=== PATIENT | male | born 1995 | race Caucasian/White ===

== ENCOUNTER 2023-05-15 18:05 | Emergency (ER) | payer OTHER, SELFPAY ==
[2023-05-15 18:13] VITALS: BP 123/59; PULSE 81; RESP 18; TEMP 37.1; O2SAT 98; BMI 22.4
--- NOTE | 2023-05-15 19:20 | ED.WOUNDLAC ---
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 He states it was a very sharp [place] straight bladed knife. It bled quite profusely initially but they were able to get it wrapped up. His boss insisted that he come to the emergency department for further evaluation. Patient denies any previous injury to this finger, does state that ever since the injury happened he is had numbness at the tip of his finger past the laceration. Denies any other complaints or concerns and presents with L and I paperwork. Related Data Previous Rx's Medication Instructions Recorded mupirocin 2 % topical ointment 1 applic topical TID #22 grams 06/17/22 cephalexin 500 mg capsule 500 mg PO Q8H 5 days #15 caps 05/15/23 Allergies Allergy/AdvReac Type Severity Reaction Status Date / Time No Known Drug Allergies Allergy Verified 05/15/23 18:17 Review of Systems <Shawna Turcios PA-C - Last Filed: 05/15/23 21:47> Review of Systems Narrative: See HPI Patient History <Shawna Turcios PA-C - Last Filed: 05/15/23 21:47> Social History Smoking Status: Current every day smoker Smoking Status: Current every day smoker tobacco type: e-cigarettes alcohol intake frequency: 0-2 drinks per day Substance Use Type: does not use Exam <Shawna Turcios PA-C - Last Filed: 05/15/23 21:47> Narrative Exam Narrative: GENERAL: [27] year old patient appears stated age. Well-developed patient, in mild distress. HEAD: Atraumatic. Normocephalic. EYES: Pupils equal round and reactive. Extraocular motions intact. No scleral icterus. No injection or drainage. ENT: Nose without bleeding, purulent drainage. Airway patent. NECK: Trachea midline. Non tender CARDIOVASCULAR: Regular rate and rhythm without murmurs, gallops, or rubs. RESPIRATORY: Clear to auscultation. Breath sounds equal bilaterally. No wheezes, rales, or rhonchi. EXTREMITIES: Deep laceration full-thickness 2.5 cm swoosh shaped laceration to patient's pad of left index finger. Tourniquet with IV for banding applied prior to removing pressure dressing and bleeding is controlled. Tourniquet is removed and bleeding remains controlled, distal finger tip pad finger is slightly pale, sensation is reduced nearly absent in distal finger distal to the laceration site on the anterior aspect. There is normal active range of motion with flexion and extension of the affected finger. Cap refill is less than 2 seconds with pink well-perfused skin on the dorsum of the affected finger and anteriorly on the affected finger proximal to the laceration, No edema or joint tenderness strong equal bilateral radial pulses. BACK: Nontender without deformity or crepitance. No flank tenderness. NEURO: AOx3. SKIN: No rash or erythema of visible areas Initial Vital Signs Initial Vital Signs: Vital Signs Temperature 98.8 F 05/15/23 18:13 Pulse Rate 81 05/15/23 18:13 Respiratory Rate 18 05/15/23 18:13 Blood Pressure 123/59 L 05/15/23 18:13 Pulse Oximetry 98 05/15/23 18:13 Oxygen Delivery Method Room Air 05/15/23 18:13 <Johny Griffiths DO - Last Filed: 05/15/23 22:09> Initial Vital Signs Initial Vital Signs: Vital Signs Temperature 98.8 F 05/15/23 18:13 Pulse Rate 81 05/15/23 18:13 Respiratory Rate 18 05/15/23 18:13 Blood Pressure 123/59 L 05/15/23 18:13 Pulse Oximetry 98 05/15/23 18:13 Oxygen Delivery Method Room Air 05/15/23 18:13 Procedures <Shawna Turcios PA-C - Last Filed: 05/15/23 21:47> Laceration Repair Laceration 1: Time of procedure: 20:45 Site: hand (index finger tip) Side (If applicable): left Description: other (Curvilinear/swoosh) Local Anesthetic: lidocaine 1% (ordered 2% w/epi but used 1% plain lido only after evaluating wound/bleeding controlled) Amount of anesthesia used (mL): 2 Pre-repair: wound explored, irrigated extensively, deep structures intact and cleansed with chlorhexadine Skin layer closed with: nylon Skin layer suture size: 5-0 Number of sutures: 6 Technique: simple, interrupted Course <Shawna Turcios PA-C - Last Filed: 05/15/23 21:47> Orders Ordered: ED Orders 05/15/23 20:31 XR finger LT min 2V Stat Discontinued Medications Cephalexin HCl (Cephalexin 250 Mg Capsule) 500 mg PO NOW ONE Stop: 05/15/23 21:32 Last Admin: 05/15/23 21:35 Dose: 500 mg Documented By: Lidocaine/Epinephrine (Lidocaine 2% W/Epi Inj) 5 ml INJ INTRA-OP ONE Stop: 05/15/23 20:29 Last Admin: 05/15/23 20:34 Dose: 5 ml Documented By: Vital Signs Vital signs: Vital Signs - 8 hr 05/15/23 18:13 05/15/23 21:36 Temperature 98.8 F Pulse Rate 81 66 Respiratory Rate 18 16 Blood Pressure 123/59 L 132/88 Pulse Oximetry 98 98 Oxygen Delivery Method Room Air Room Air <Johyn Griffiths DO - Last Filed: 05/15/23 22:09> Orders Ordered: ED Orders 05/15/23 20:31 XR finger LT min 2V Stat Discontinued Medications Cephalexin HCl (Cephalexin 250 Mg Capsule) 500 mg PO NOW ONE Stop: 05/15/23 21:32 Last Admin: 05/15/23 21:35 Dose: 500 mg Documented By: Lidocaine/Epinephrine (Lidocaine 2% W/Epi Inj) 5 ml INJ INTRA-OP ONE Stop: 05/15/23 20:29 Last Admin: 05/15/23 20:34 Dose: 5 ml Documented By: Vital Signs Vital signs: Vital Signs - 8 hr 05/15/23 18:13 05/15/23 21:36 Temperature 98.8 F Pulse Rate 81 66 Respiratory Rate 18 16 Blood Pressure 123/59 L 132/88 Pulse Oximetry 98 98 Oxygen Delivery Method Room Air Room Air MDM - Wound/Laceration <Shawna Turcios PA-C - Last Filed: 05/15/23 21:47> Medical Records Attestation: I reviewed the patient's medical records. Imaging Data Extremity x-ray #1: My Impression: Agree with Radiology interpretation Radiologist's Impression: [address] [address] XRay Report Signed Patient: Prasanth Hallman MR#: [id number] : 1995 Acct:[id number] Age/Sex: 27 / M Date of Service: 05/15/23 Loc: ED Accession Number: [id number] ?? Procedure: XR finger LT min 2V Ordering Provider: Shawna Turcios P.A-C PROCEDURE:? XR FINGER LT MIN 2V ? INDICATIONS:? laceration pad of L index finger ? TECHNIQUE:? AP hand, 2 views of the 2nd finger(s) acquired.? ? COMPARISON:? None. ? FINDINGS:? ? Bones:? 2nd digit soft tissue laceration present.? No definitive fracture. ? Soft tissues:? No suspicious soft tissue calcifications.? ? IMPRESSION:? 2nd digit soft tissue laceration. No visualized acute fracture or dislocation. However, if clinical concern and/or pain persist, short interval imaging followup in 7-10 days is recommended, as occult injury cannot be definitively excluded. ? ? Dictated by: Marilee Petty M.D. on 05/15/2023 at 21:29 ? ? Approved by: Marilee Petty M.D. on 05/15/2023 at 21:30?? 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 [id number]. Given deep laceration and patient's nature of work did recommend that he have 3 days off and light duty after that until he has stitches removed and has fully recovered. Wound is repaired as above in procedures today patient does have reduced sensation and suspect nerve damage distal to the laceration site. Tendons appear to be intact and x-ray is without evidence of bony damage. Given the depth of wound and fact that patient was cutting fish at the time of the incident prescription for Keflex today. His Tdap is up-to-date last given in 2021. Return precautions provided, follow-up plan discussed, all questions answered. Discharge Plan Departure Patient Disposition: Home Clinical Impression: Laceration of left index finger Instructions: How to Care for a Laceration After Repair Activity Restrictions/Additional Instructions: *You have been diagnosed with [left index finger laceration] *What to do: *Please continue to take your regular medications as directed. [ ] New medication prescriptions sent to your pharmacy: [ ] [ ] New medication written as a paper prescription [X ] No new medications given *Please follow up with your primary care provider in 2-3 days, call for an appointment. Let them know you were seen in the Emergency Department and that we ask that you be seen in follow up. We will electronically transmit a record of today's note if your PCP is in our system. You did have a deep laceration to index finger and L and I paperwork was completed during your emergency department stay [place] #[id number]. We numbed and sutured your finger with 6 stitches. We also obtained an x-ray today. You had numbness at the tip of your finger past the laceration before numbing and I suspect that you do have some nerve damage, this area may potentially be permanently somewhat numb or it may have some improvement in sensation but it takes time for nerves to grow back. I recommend he be on light duty for at least the next 3 days until you get your stitches out. You should get your stitches out in 7-10 days' time. You will want to keep your finger clean and dry and monitor for signs of infection. Because this was a deep laceration I am going to place you on antibiotics today please take these for the full course *If you do not have a primary care provider please contact the [facility] Resource line at [phone]. They will ask some questions about your medical history and help get you set up with a doctor in the community. *Return to Emergency Department if you should have any new, worsening or concerning symptoms, such as [fever greater than 101 F, shaking chills, worsening pain, persistent vomiting or other bothersome symptoms] Prescriptions: New cephalexin 500 mg capsule 500 mg PO Q8H 5 Days Qty: 15 0RF No Action mupirocin 2 % ointment 1 applic topical TID Qty: 22 2RF Referrals: Miscellaneous,Doctor, [Primary Care Provider] - Stand Alone Forms: Patient Portal/API, Work Release Note <Johny Griffiths, DO - Last Filed: 05/15/23 22:09> Cosign ED Attending Cosignature Attestation: Dr Griffiths Co-Sign Statement: I was available for consultation during this patient's emergency department visit. This chart is signed by myself for administrative purposes only. I did not have direct contact with this patient during this visit. They were seen independently by the APC.
--- NOTE | 2023-05-15 20:31 | DI.RAD.S_ITS ---
PROCEDURE: XR FINGER LT MIN 2V INDICATIONS: laceration pad of L index finger TECHNIQUE: AP hand, 2 views of the 2nd finger(s) acquired. COMPARISON: None. FINDINGS: Bones: 2nd digit soft tissue laceration present. No definitive fracture. Soft tissues: No suspicious soft tissue calcifications. IMPRESSION: 2nd digit soft tissue laceration. No visualized acute fracture or dislocation. However, if clinical concern and/or pain persist, short interval imaging followup in 7-10 days is recommended, as occult injury cannot be definitively excluded. Dictated by: Marilee Petty M.D. on 05/15/2023 at 21:29 Approved by: Marilee Petty M.D. on 05/15/2023 at 21:30
[2023-05-15] MEDS: LIDOCAINE 2% W/EPI INJ 5 ML INJ (20:34)
[2023-05-15] MEDS: cephALEXin 250 MG CAPSULE 500 MG PO (21:35)
[2023-05-15 21:36] VITALS: BP 132/88; PULSE 66; RESP 16; O2SAT 98
== END 2023-05-15 21:41 | disposition home or self-care (01) ==
PROVIDERS: Emergency Provider Student in an Organized Health Care Education/Training Program
DX: S61.211A Laceration without foreign body of left index finger without damage to nail, initial encounter (principal); W26.0XXA Contact with knife, initial encounter; Y93.G3 Activity, cooking and baking; Y92.511 Restaurant or cafe as the place of occurrence of the external cause; Y99.0 Civilian activity done for income or pay
CPT/HCPCS: 12001; 73140; 99283; 99284

== ENCOUNTER → 2023-12-23 16:30 | Outpatient (CLI) | payer OTHER, SELFPAY ==
[2023-12-23 18:33] LABS: Add Manual Diff / Slide Review NO; Basophils Absolute Auto 100 /uL (0-100); Basophils Percent Auto 0.7 % (0-2); Eosinophils Absolute Auto 0 /uL (0-450); Eosinophils Percent Auto 0.5 % (2-4); Hematocrit 41.2 % (41-53); Hemoglobin 14.4 g/dL (13.5-17.5); Lymphocytes Absolute Auto 2100 /uL (1100-4500); Lymphocytes Percent Auto 26.8 % (25-40); Mean Corpuscular HGB Conc 34.9 % (30-36); Mean Corpuscular Hemoglobin 29.9 PG (26-34); Mean Corpuscular Volume 85.5 fL (80-100); Monocytes Absolute Auto 500 /uL (0-900); Monocytes Percent Auto 6.6 % (3-14); Neutrophils Absolute Auto 5200 /uL (1500-7000); Neutrophils Percent Auto 65.4 % (50-75); Platelet Count 291 X10^3/uL (150-400); Red Blood Cell Count 4.82 X10^6/uL (4.5-5.9)
[2023-12-23 18:39] LABS: Alanine Aminotransferase 15 IU/L (<50); Albumin 4.5 g/dL (3.5-5.0); Albumin Globulin Ratio 1.7 (1.0-2.8); Alkaline Phosphatase 49 U/L (38-126); Aspartate Aminotransferase 21 IU/L (17-59); BUN Creatinine Ratio 14.9 (6-22); Bilirubin Total 0.6 mg/dL (0.2-1.3); Blood Urea Nitrogen 13 mg/dL (9-20); Calcium 9.3 mg/dL (8.4-10.2); Carbon Dioxide 22 mmol/L (22-32); Chloride 105 mmol/L (98-107); Estimated Glomerular Filt Rate > 60 mL/min (>60); Globulin 2.6 g/dL (1.7-4.1); Glucose 90 mg/dL (70-100); HEMOLYSIS < 15 (0-50); Potassium 4.1 mmol/L (3.4-5.1); Sodium 138 mmol/L (137-145); Total Protein 7.1 g/dL (6.3-8.2)
[2023-12-23 18:45] LABS: HEMOLYSIS < 15 (0-50); Iron 104 ug/dL (49-181)
[2023-12-23 18:56] LABS: Percent Iron Saturation 42 % (20-50); Total Iron Binding Capacity 248 ug/dL (261-462); Transferrin 205 mg/dL (206-381)
[2023-12-23 19:10] LABS: Ferritin 66 ng/mL (18-464)
[2023-12-23 19:17] LABS: TSH w/ Reflex to FT4 0.51 uIU/mL (0.47-4.68)
== END ==
PROVIDERS: PCP Student in an Organized Health Care Education/Training Program; Referring Provider Student in an Organized Health Care Education/Training Program; Visit Provider Student in an Organized Health Care Education/Training Program
DX: R53.83 Other fatigue (principal)
CPT/HCPCS: 36415; 80053; 82728; 83540; 83550; 84443; 85025